=== PATIENT | female | born 1950 | race Caucasian/White ===

== ENCOUNTER → 2019-09-10 | Outpatient (CLI) | payer MEDICARE, MEDICAID | END | disposition home or self-care (01) | LOC: CFH 13:04 | PROVIDERS: ATTEND Internal Medicine | DX: J43.2 Centrilobular emphysema (principal); J43.9 Emphysema, unspecified; E04.1 Nontoxic single thyroid nodule | CPT/HCPCS: 71250 ==

== ENCOUNTER → 2020-12-04 | Outpatient (CLI) | payer MEDICARE, MEDICAID ==
[2020-12-04 16:57] LABS: BASOPHILS % (AUTO) 1 % (0-1); EOSINOPHILS % (AUTO) 3 % (1-7); LYMPHOCYTES % (AUTO) 15 % (22-44); MEAN CORPUSCULAR HEMOGLOBIN 19.5 pg (27.0-34.8); MEAN CORPUSCULAR HGB CONC 30.5 g/dL (32.4-35.8); MEAN PLATELET VOLUME 8.5 fL (7.4-10.4); MONOCYTES % (AUTO) 9 % (2-9); NEUTROPHILS % (AUTO) 72 % (42-75); PLATELET COUNT 397 x10^3/uL (130-400); RED BLOOD COUNT 4.46 x10^6/uL (3.82-5.3)
[2020-12-04 17:03] LABS: ALBUMIN 3.5 g/dL (3.4-5.0); ANION GAP 2 mmol/L (5-15); CALCIUM 8.6 mg/dL (8.5-10.1); CHLORIDE 104 mmol/L (98-107); MD MORPH REVIEW ONLY
[2020-12-04 17:15] LABS: ALANINE AMINOTRANSFERASE 12 U/L (12-78); ALKALINE PHOSPHATASE 57 U/L (45-117); BILIRUBIN,TOTAL 0.7 mg/dL (0.2-1.0); CREATININE 0.61 mg/dL (0.55-1.02); FREE T4 (FREE THYROXINE) 1.06 ng/dL (0.76-1.46); TOTAL PROTEIN 7.3 g/dL (6.4-8.2)
[2020-12-04 17:20] LABS: ANISOCYTOSIS 1+; MICROCYTOSIS 2+
[2020-12-04 17:21] LABS: HYPOCHROMIA 2+; OVALOCYTES 1+; POLYCHROMASIA 1+
[2020-12-04 17:22] LABS: STOMATOCYTES 1+
[2020-12-04 17:23] LABS: <PLATELET ESTIMATE> ADEQUATE; <PLT MORPHOLOGY> NORMAL PLT MORPH; TARGET CELLS 1+
== END | disposition home or self-care (01) ==
LOC: LAB 16:19
PROVIDERS: ATTEND Internal Medicine Endocrinology, Diabetes & Metabolism
DX: Z02.89 Encounter for other administrative examinations (principal); E05.90 Thyrotoxicosis, unspecified without thyrotoxic crisis or storm; I10 Essential (primary) hypertension
CPT/HCPCS: 36415; 80053; 84439; 84443; 84480; 85025